=== PATIENT | male | born 1955 | race Caucasian/White ===

== ENCOUNTER 2025-01-07 06:55 | Day surgery (SDC) | payer OTHER, MEDICARE ==
[2025-01-01 15:38] VITALS: BP 126/85
[~2025-01-07] VITALS: Ht 167.6 cm; Wt 58.6 kg
[~2025-01-07 06:55] MED LIST: ALDACTONE25 MG PO; AMLODIPINE BESY10 MG PO; ANORO ELLIPTA1 EACH INH; ASPIRIN81 MG PO; CLOPIDOGREL75 MG PO; FISH OIL 1,0001 EAC6 PO; HYDRALAZINE HCL25 MG PO; INDAPAMIDE2.5 MG PO; K-TAB ER20 MEQ PO; LACTATED RINGER'S 1,000 ML IV SCH; LIPITOR40 MG PO; METOPROLOL TART50 MG PO; NORCO 5-325 TA1 EACH PO; PANTOPRAZOLE SO40 MG PO; POTASSIUM CHLO10 ME2 PO; TOPROL XL50 MG PO; VENTOLIN HFA18 GM INH; VITAMIN B-1100 M1 PO; VITAMIN C1000 MG PO; VITAMIN D350 MCG PO
[2025-01-07] MEDS ORDERED: IBLOOD GLUCOSE TEST STRIP 1 EA TEST VI PRN (07:00)
[2025-01-07] MEDS ORDERED: AMP/SULBACTAM SOD 3 GM in SODIUM CHLORIDE 0.9% 100 ML IV SCH (07:00)
[2025-01-07] MEDS ORDERED: LIDOCAINE HCL 1% 5 ML SDV INJ ONE (07:00)
[2025-01-07 07:15] VITALS: BP 135/88
[2025-01-07] MEDS ORDERED: GLUCAGON,HUMAN RECOMBINANT 1 MG/ML VIAL ONE (09:21)
[2025-01-07 11:38] VITALS: BP 114/72
--- NOTE | 2025-01-07 11:39 | NUR ---
01/07/25 1139 Jeri Ricci 1014 PT ARRIVED IN PACU SLEEPY. ABD SOFT. 1025 DR AT BEDSIDE. ALL QUESTIONS ANSWERED. 1030 RESTING. REU. 1045 PT AWAKE AND SITTING UP IN BED SIPPING ON WATER. 1100 DC INSTRUCTIONS GIVEN. GETTING DRESSED. 1108 LEFT VIA W/C. INSTRUCTIONS GIVEN TO AT CAR.
== END 2025-01-07 11:08 | disposition home or self-care (01) ==
LOC: DS 06:55
PROVIDERS: ATTEND Surgery
PROC: 0DB78ZX Excision of Stomach, Pylorus, Via Natural or Artificial Opening Endoscopic, Diagnostic (ICD-10-PCS; 2025-01-07)
PROC: 0DBP8ZX Excision of Rectum, Via Natural or Artificial Opening Endoscopic, Diagnostic (ICD-10-PCS; principal; 2025-01-07 09:00)
PROC: 0DB38ZX Excision of Lower Esophagus, Via Natural or Artificial Opening Endoscopic, Diagnostic (ICD-10-PCS; 2025-01-07 09:00)
DX: K62.5 Hemorrhage of anus and rectum (principal); K21.9 Gastro-esophageal reflux disease without esophagitis; K62.1 Rectal polyp; K22.70 Barrett's esophagus without dysplasia; K44.9 Diaphragmatic hernia without obstruction or gangrene; K56.699 Other intestinal obstruction unspecified as to partial versus complete obstruction; N40.2 Nodular prostate without lower urinary tract symptoms; B00.89 Other herpesviral infection; K20.80 Other esophagitis without bleeding; D50.0 Iron deficiency anemia secondary to blood loss (chronic); I12.9 Hypertensive chronic kidney disease with stage 1 through stage 4 chronic kidney disease, or unspecified chronic kidney disease; N18.30 Chronic kidney disease, stage 3 unspecified; J44.9 Chronic obstructive pulmonary disease, unspecified; E78.2 Mixed hyperlipidemia; Z87.11 Personal history of peptic ulcer disease; Z87.891 Personal history of nicotine dependence; Z79.02 Long term (current) use of antithrombotics/antiplatelets; Z79.82 Long term (current) use of aspirin; Z79.899 Other long term (current) drug therapy; Z95.820 Peripheral vascular angioplasty status with implants and grafts
CPT/HCPCS: 00813; 36415; 84153; 87077; 88305; J0295; J1610; J2704; J7121

== ENCOUNTER 2025-03-18 09:20 | Day surgery (SDC) | payer OTHER, MEDICARE ==
[~2025-03-18] VITALS: Ht 167.6 cm; Wt 61.0 kg
[~2025-03-18 09:20] MED LIST changes: +IBLOOD GLUCOSE TEST STRIP 1 EA TEST VI PRN; +LIDOCAINE HCL 1% 5 ML SDV INJ ONE
[2025-03-18 09:44] VITALS: BP 145/88
[2025-03-18] MEDS ORDERED: LIDOCAINE HCL 2% 5 ML SDV ONE (11:55)
[2025-03-18] MEDS ORDERED: GLUCAGON,HUMAN RECOMBINANT 1 MG/ML VIAL ONE (12:48)
--- NOTE | 2025-03-18 13:42 | NUR ---
03/18/25 1342 Irina Lopez 1336-PATIENT ARRIVED TO PACU ON 6L MASK RR EVEN PATIENT LAYING LEFT LATERAL NONAROUSABLE O2 SAT 90% 6L MASK. ABDOMEN SOFT. IVF INFUSING. SR HR 60'S. 1342-PATIENT PASSING GAS. 6L MASK 92% RR EVEN.
[2025-03-18 14:27] VITALS: BP 163/85
--- NOTE | 2025-03-20 08:48 | OR ---
[facility] [address] [place], [place] [address] Signed DATE OF OPERATION: 03/18/2025 SURGEON: Jessica Ace DO PREOPERATIVE DIAGNOSIS: Sigmoid mass with partial obstruction. 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 PROCEDURE PERFORMED: Partial colonoscopy with attempted balloon dilation of the strictured area at 20 cm. Multiple biopsies of the sigmoid mass at 20 cm and then ink tattooing of the wall at 20 cm. ANESTHESIA: IV sedation. ESTIMATED BLOOD LOSS: Minimal. DRAINS: None. COMPLICATIONS: None. DESCRIPTION OF PROCEDURE: The patient was brought to the GI lab, placed in supine position. After induction of IV sedation, the patient was then placed in the left lateral position, padded to the satisfaction of anesthesia. The Olympus video colonoscope was introduced into the anus directed to the length of rectosigmoid and the sigmoid colon. Upon encountering at approximately 20 cm, a stricture was noted with an apple-core type lesion with a broad base of mass effect distal to this. Multiple biopsies were taken of this sigmoid mass and passed off the field for pathologic review. The lumen was noted approximately 2 to 3 mm in diameter balloon. Dilator was then placed and the colonoscope passed the lumen of the mass effect and the balloon was then dilated sequentially to approximately 2 to 3 mm of pressure. This was done in a sequential fashion and 2 attempts to dilate the area of the stricture. No evidence of injury was noted, but the Electronically Signed By: JESSICA ACE DO 03/20/25 0848 PATIENT NAME: GINI SERNA JR OPERATIVE REPORT DATE OF : 55 REPORT #: [id number] PHYSICIAN: JESSICA ACE DO PCP: DARIO GARVEY MD REPORT IS CONFIDENTIAL AND NOT TO BE RELEASED WITHOUT AUTHORIZATION [facility] [address] [place], [place] [address] Signed stricture was hard and could not be dilated. The balloon was deflated and removed at the sigmoid mass at 20 cm, an injector needle was then passed down through the colonoscope and the mass was then tattooed with methylene blue in the wall. Satisfactory hemostasis was maintained. No further attempts of dilation were noted. The scope could not be passed through the stricture itself and the scope was withdrawn. The patient tolerated the procedure well, went to the recovery room in satisfactory condition. DO JAMES Zepeda/SORAIDA /[id number] Copies: ~ Electronically Signed By: JESSICA ACE DO 03/20/25 0848 PATIENT NAME: GINI SERNA JR OPERATIVE REPORT DATE OF : 55 REPORT #: [id number] PHYSICIAN: JESSICA ACE DO PCP: DARIO GARVEY MD REPORT IS CONFIDENTIAL AND NOT TO BE RELEASED WITHOUT AUTHORIZATION
--- NOTE | 2025-03-23 17:19 | PATH ---
[facility] [address] [place], [place] [address] Signed SPECIMEN(S): A COLON BIOPSY AT 25 CM SPECIMEN SOURCE: A. COLON BIOPSY AT 25 CM CLINICAL HISTORY: Sigmoid stricture, colon screening, rectosigmoid mass with stricture FINAL PATHOLOGIC DIAGNOSIS: Colon biopsy at 25 cm: - Fragments of acute and chronic inflammation and ulcer bed with granulation changes and scant epithelium with chronic reactive features and atypia, likely reactive. - A cytokeratin AE1/3 immunostain is negative for occult carcinoma. - See Comment. COMMENT: There is no evidence of carcinoma on these sections, however clinical correlation is requested and if there is clinical suspicion for neoplasia, additional sampling may be considered as indicate. JVR:smn MICROSCOPIC EXAMINATION: Histologic sections of all submitted blocks are examined by light microscopy. These findings, together with the gross examination, support the pathologic diagnosis. A cytokeratin AE1/3 immunostain is performed with appropriate controls on block A1 and is negative for occult carcinoma. JVR:smn GROSS DESCRIPTION: The specimen, labeled and designated "Larry colon polyp at 25 cm," is received in formalin and consists of three cornelius soft tissue fragments, ranging from 0.6-0.7 cm. Entirely submitted in (A1). VB (under the direct supervision of a pathologist) The Gross Description was prepared using a voice recognition system. The report was reviewed for accuracy; however, sound-alike word errors, addition and/or deletions may occur. If there is any question about this report, please contact Client Services. ADDITIONAL NOTES: PATIENT NAME: GINI SERNA JR PATHOLOGY DATE OF : 55 REPORT #: [id number] PHYSICIAN: ALFRED LANDERS PCP: DARIO GARVEY MD REPORT IS CONFIDENTIAL AND NOT TO BE RELEASED WITHOUT AUTHORIZATION [facility] [address] [place], [place] [address] Signed Immunohistochemical and/or in situ hybridization studies if performed on this case included appropriate positive controls that reacted as expected. This test was developed and its performance characteristics determined by [facility]. It has not been cleared or approved by the U.S. Food and Drug Administration. The FDA has determined that such clearance or approval is not necessary. This test is used for clinical purposes. It should not be regarded as investigational or for research. [facility] is certified under the Clinical Laboratory Improvement Amendments of 1988 (CLIA) as qualified to perform high complexity clinical laboratory testing. This assay has not been validated for specimens that have been decalcified. PERFORMING LABORATORY: Technical component was performed by [facility], [address] [place] [id number] (CLIA# [id number]). Professional interpretation was performed by [facility] - [facility], [address] [place] [id number] (CLIA#: [id number]). Diagnostician: Lewis Castellanos MD Pathologist Electronically Signed 03/23/2025 Copies: ~ PATIENT NAME: GINI SERNA PATHOLOGY DATE OF : 55 REPORT #: [id number] PHYSICIAN: ALFRED LANDERS PCP: DARIO GARVEY MD REPORT IS CONFIDENTIAL AND NOT TO BE RELEASED WITHOUT AUTHORIZATION
== END 2025-03-18 14:35 | disposition home or self-care (01) ==
LOC: DS 09:20
PROVIDERS: ATTEND Surgery
PROC: 0D7N8ZZ Dilation of Sigmoid Colon, Via Natural or Artificial Opening Endoscopic (ICD-10-PCS; 2025-03-18)
PROC: 3E0H8KZ Introduction of Other Diagnostic Substance into Lower GI, Via Natural or Artificial Opening Endoscopic (ICD-10-PCS; 2025-03-18)
PROC: 0DBN8ZX Excision of Sigmoid Colon, Via Natural or Artificial Opening Endoscopic, Diagnostic (ICD-10-PCS; principal; 2025-03-18 11:35)
DX: K56.690 Other partial intestinal obstruction (principal); D12.5 Benign neoplasm of sigmoid colon; K52.9 Noninfective gastroenteritis and colitis, unspecified; K63.3 Ulcer of intestine; I12.9 Hypertensive chronic kidney disease with stage 1 through stage 4 chronic kidney disease, or unspecified chronic kidney disease; N18.30 Chronic kidney disease, stage 3 unspecified; J44.9 Chronic obstructive pulmonary disease, unspecified; E78.2 Mixed hyperlipidemia; Z87.891 Personal history of nicotine dependence; Z79.02 Long term (current) use of antithrombotics/antiplatelets; Z79.82 Long term (current) use of aspirin; Z79.899 Other long term (current) drug therapy
CPT/HCPCS: 00811; 88305; 88342; C1726; J1610; J2003; J2704; J7121